=== PATIENT | male | born 1945 | race Caucasian/White ===

== ENCOUNTER → 2018-03-25 | Outpatient (CLI) | payer OTHER ==
[~2018-03-25] MED LIST: LIDOCAINE 1% 300 MG/30 ML SDV ONE
== END ==
LOC: FIMAGING 11:40
PROVIDERS: ATTEND Internal Medicine
PROC: 0W9G3ZZ Drainage of Peritoneal Cavity, Percutaneous Approach (ICD-10-PCS; principal; 2018-03-25)
DX: R18.8 Other ascites (principal)

== ENCOUNTER 2018-07-11 08:07 | Day surgery (SDC) | payer OTHER ==
[2018-07-11] MEDS ORDERED: LR 1,000 ML IV ONE (09:03)
--- NOTE | 2018-07-11 09:25 | PDGENHP ---
History & Physical Chief Complaint: Esophageal varices History of Present Illness: ETOH cirrhosis with portal hypertension. Previous esophageal varices with band ligation for UGI bleed Pertinent Past, Social, Family History: PMH: Cirrhosis. Ascites. edema. PSH: none. FH: no liver disease Relevant Physical Exam: NAD. CTA B/L. RRR KARTHIK 2/6 LLSB. GI ascites. umbilical hernia. NT. Edema Cardiorespiratory Assessment: EGD with band ligation of esophageal varices. ASA III
--- NOTE | 2018-07-11 09:29 | PDANEPAE ---
ANE History of Present Illness here for EGD with esophageal banding ANE Past Medical History - Cardiovascular History Hx Hypertension: Yes Hx Arrhythmias: No Hx Chest Pain: No Hx Palpitations: No - Pulmonary History Hx COPD: No Hx Oxygen in Use at Home: No Hx Sleep Apnea: No - Neurologic History Hx Cerebrovascular Accident: No Hx Seizures: No Hx Dementia: No - Endocrine History Hx Diabetes: No - Renal History Hx Renal Disorders: No - Liver History Hx Hepatic Disorders: Yes Hepatic History Comment: cirrhosis - Neurological & Psychiatric Hx Hx Neurological and Psychiatric Disorders: No - Cancer History Hx Cancer: No - Congenital Disorder History Hx Congenital Disorders: No - GI History Hx Gastrointestinal Disorders: Yes Gastrointestinal History Comment: GERD, varices ANE Review of Systems Review of systems is: negative Review of Systems: - Exercise capacity METS (RN): 3 METS ANE Patient History - Allergies Allergies/Adverse Reactions: No Allergies [NKDA] Allergy (Verified 07/11/18 08:40) - Home Medications Home Medications: Aldactone 100 mg PO DAILY 07/11/18 [Last Taken 07/10/18] Furosemide [Lasix 40 MG (*)] 07/11/18 [Last Taken 07/10/18] Pantoprazole Sodium [Protonix 40mg (*)] 40 mg PO DAILY 07/11/18 [Last Taken 01/18] Tamsulosin HCl 0.4 mg PO 07/11/18 [Last Taken 07/10/18] amLODIPine BESYLATE [Amlodipine Besylate] 5 mg PO 07/11/18 [Last Taken 07/10/18] - NPO status NPO Status: no food or drink >8 hours NPO Since - Liquids (Date): 07/11/18 NPO Since - Liquids (Time): 07:00 NPO Since - Solids (Date): 07/10/18 NPO Since - Solids (Time): 18:00 - Smoking Hx Smoking Status: Never smoked - Family Anes Hx Family Hx Anesthesia Complications: na ANE Labs/Vital Signs - Vital Signs Vital Signs: reviewed preoperatively; see RN documention for details Blood Pressure: 141/84 Heart Rate: 100 Respiratory Rate: 16 O2 Sat (%): 92 Height: 172.72 cm Weight: 83.915 kg ANE Physical Exam - Airway Neck exam: FROM Mallampati Score: Class 2 Mouth exam: small mouth opening - Pulmonary Pulmonary: no respiratory distress - Cardiovascular Cardiovascular: regular rate and rhythym - ASA Status ASA Status: III ANE Anesthesia Plan Anesthesia Plan: general endotracheal anesthesia Specialized Airway: video laryngoscope
[2018-07-11] MEDS ORDERED: PROPOFOL/EMULSION 500 MG/50 ML BOTTLE IV ONE (09:34)
[2018-07-11] MEDS ORDERED: PHENYLEPHRINE HCL 100 MCG/ML SYR ONE (09:38)
[2018-07-11] MEDS ORDERED: DEXAMETHASONE 4 MG/ML VIAL IVP PRN (09:49)
[2018-07-11] MEDS ORDERED: LR 500 ML IV PRN (09:49)
[2018-07-11] MEDS ORDERED: NS 500 ML IV PRN (09:49)
[2018-07-11] MEDS ORDERED: NALOXONE HCL 0.4 MG/ML INJ IVP PRN (09:49)
[2018-07-11] MEDS ORDERED: ALBUTEROL 3 ML DEYVIAL IH PRN (09:49)
[2018-07-11] MEDS ORDERED: ONDANSETRON 4 MG/2 ML VIAL IVP PRN (09:49)
[2018-07-11] MEDS ORDERED: fentaNYL 100 MCG/2 ML INJ IVP PRN (09:49)
[2018-07-11] MEDS ORDERED: SUGAMMADEX SODIUM 200 MG/2 ML VIAL IVP ONE (09:55)
--- NOTE | 2018-07-11 10:02 | GIREPORT ---
[facility] - Endoscopy Department Patient Name: Chuy Wilkins Procedure Date: 07/11/2018 9:26 AM Patient Type: Outpatient Attending MD/ ER Physician: Theo Cameron MD Procedure: Upper GI endoscopy Indications: Portal hypertension rule out esophageal varices, Esophageal varices, 2n d degree variceal eradication (following bleed) Providers: Theo Cameron MD Medicines: General Anesthesia Complications: No immediate complications. Description of Procedure: After obtaining informed consent, the endoscope was passed under direct vision. Throughout the procedure, the patient's blood pressure, pulse, and oxygen saturations were monitored continuously. The Endoscope was intro duced through the mouth, and advanced to the second part of duodenum. The [facility] er GI endoscopy was accomplished without difficulty. The patient tolerated th e procedure well. Findings: Grade II varices were found in the lower third of the esophagus. 3 colu mns were seen with red aris stigmata. Five bands were successfully placed a cross the 3 columns from 35 to 38cm with incomplete eradication of varices bu t signicant decompression. There was no bleeding during, and at the end, of the procedure. Moderate portal hypertensive gastropathy was found in the entire examin ed stomach. The examined duodenum was normal. Estimated Blood Loss: Estimated blood loss: none. Post Op Diagnosis: - Grade II esophageal varices. Incompletely eradicated. Banded. - Portal hypertensive gastropathy. - Normal examined duodenum. - No specimens collected. Recommendation: - Discontinue alcohol consumption indefinitely. - Discontinue aspirin and NSAIDs indefinitely. - Repeat upper endoscopy in 4 weeks for retreatment. - Low sodium diet. - Return to liver clinic as previously scheduled. - Thank you for allowing me to be involved in the care of your patient. Attending Participation: I personally performed the entire procedure without the assistance of a fellow, resident or surg ical assistant fitness manager. Theo Cameron MD Theo Cameron MD 07/11/2018 10:01:26 AM This report has been signed electronicallyDavid MD Rakesh Number of Addenda: 0 Note Initiated On: 07/11/2018 9:26 AM [email or web address]
[2018-07-11] MEDS ORDERED: ALBUTEROL 3 ML DEYVIAL ONE (10:18)
--- NOTE | 2018-07-11 10:18 | POSTANESTH ---
Post Anesthetic Evaluation Cardiovascular Status: Normal, Stable Respiratory Status: Normal, Stable Level of Consciousness/Mental Status: Can Participate in Eval Pain Control: Adequate, Prn Tx Ordered Nausea/Vomiting Control: Adequate, Prn Tx Ordered Complications Possibly Related to Anesthesia: None Noted
[2018-07-11 11:15] VITALS: BP 125/69
== END 2018-07-11 11:21 | disposition home or self-care (01) ==
LOC: FSGY 08:07
PROVIDERS: ATTEND Internal Medicine Gastroenterology
PROC: 06L38CZ Occlusion of Esophageal Vein with Extraluminal Device, Via Natural or Artificial Opening Endoscopic (ICD-10-PCS; principal; 2018-07-11 09:45)
DX: I85.10 Secondary esophageal varices without bleeding (principal); K70.30 Alcoholic cirrhosis of liver without ascites; F10.988 Alcohol use, unspecified with other alcohol-induced disorder; K76.6 Portal hypertension
CPT/HCPCS: J2370; J2704; J7613